=== PATIENT | male | born 1990 | race Caucasian/White ===

== ENCOUNTER 2019-08-15 21:28 | Emergency (ER) | payer OTHER ==
--- NOTE | 2019-08-15 21:41 | ED Physician Documentation ---
History of Present Illness - Stated complaint Stated Complaint: RT UPPER LEG SWELLING/REDNESS - Chief complaint Chief Complaint: Wound - History obtained from History obtained from: Patient (The patient is a 28-year-old male who presents with a chief complaint of pain in his right leg he reports some redness and pain of the right thigh and knee and then also in the right femoral region. He denies any recent trauma or falls he denies any chest pain or shortness of breath he denies any known history of hypercoagulability.Patient denies any back pain or testicular pain or dysuria or flank pain.The patient reports she is otherwise healthy he denies any history of IV drug abuse.) Review of Systems Constitutional: reports: Reviewed and negative Eyes: reports: Reviewed and negative Ears: reports: Reviewed and negative Nose: reports: Reviewed and negative Throat: reports: Reviewed and negative Cardiac: reports: Reviewed and negative Respiratory: reports: Reviewed and negative GI: reports: Reviewed and negative : reports: Reviewed and negative Skin: reports: Reviewed and negative Musculoskeletal: reports: Extremity pain, Extremity swelling Neurologic: reports: Reviewed and negative Psychiatric: reports: Reviewed and negative Endocrine: reports: Reviewed and negative Immunocompromised: reports: Reviewed and negative PD PAST MEDICAL HISTORY - Present Medications Home Medications: Ambulatory Orders Medication Instructions Recorded Confirmed Cephalexin [Keflex] 500 mg PO QID #40 capsule 08/16/19 - Allergies Allergies/Adverse Reactions: Allergies Allergy/AdvReac Type Severity Reaction Status Date / Time No Known Drug Allergies Allergy Verified 08/15/19 21:37 PD ED PE NORMAL - Vitals Vital signs reviewed: Yes - General General: Alert and oriented X 3, No acute distress, Well developed/nourished - HEENT HEENT: Atraumatic, PERRL, EOMI - Neck Neck: Supple, no meningeal sign, No bony TTP, No JVD - Cardiac Cardiac: RRR, Strong equal pulses - Respiratory Respiratory: No respiratory distress, Clear bilaterally - Abdomen Abdomen: Normal bowel sounds, Soft, Non tender, Non distended, No organomegaly - Male Male : Other (testes descended b/l, Circumcised, urethra patent without any blood at the urethral meatus no inguinal hernias appreciated on exam, there is 2 cm tender region in the right femoral region without fluctuance or induration.) - Derm Derm: Warm and dry, Other (There is redness and tenderness over the right distal thigh that continues into the right knee there is no fluctuance or induration, There is also a small amount of redness in the right femoral region.And some mild tenderness and swelling.) - Extremities Extremities: Other (The right lower extremity is similar in diameter compared to the left lower extremity there is erythema in the distal right thigh as well as the distal right popliteal region and the right femoral region with some erythema and tenderness. there is no crepitus on exam. Compartments are soft there is palpable DP and PT pulses are 2+ and symmetric in bilateral lower extremities he has a normal gait.) - Neuro Neuro: Alert and oriented X 3 - Psych Psych: Normal mood, Normal affect Results - Vitals Vitals: Vital Signs - 24 hr 08/15/19 08/15/19 08/15/19 21:34 21:57 23:19 Temperature 36.8 C Heart Rate 92 93 76 Respiratory 17 16 Rate Blood Pressure 136/82 H 149/97 H 115/68 O2 Saturation 97 95 96 08/16/19 01:10 Temperature Heart Rate 76 Respiratory 16 Rate Blood Pressure 116/74 O2 Saturation 97 Oxygen O2 Source Room air - Labs Labs: Laboratory Tests 08/15/19 08/15/19 08/15/19 23:35 23:35 23:35 WBC 9.1 RBC 4.48 L Hgb 14.1 Hct 40.2 L MCV 89.7 MCH 31.5 H MCHC 35.1 RDW 12.4 Plt Count 186 MPV 8.6 Neut # (Auto) 6.2 Lymph # (Auto) 1.7 Beauregard # (Auto) 0.8 Eos # (Auto) 0.3 Baso # (Auto) 0.1 Absolute Nucleated RBC 0.00 Nucleated RBC % 0.0 PT 11.0 INR 1.0 APTT 29.6 Sodium 141 Potassium 3.7 Chloride 105 Carbon Dioxide 22 Anion Gap 14.0 H BUN 12 Creatinine 0.9 Estimated GFR (MDRD) 99 Glucose 111 H Calcium 8.8 PD MEDICAL DECISION MAKING - ED course Complexity details: re-evaluated patient, d/w patient (i had a lengthy discussion with the patient in regards to disposition and treatment, i did offer admission for iv abx, however the patient would like to try outpatient treatment which is a reasonable option given the fact that he has no elevated WBC, Fever or signs of sepsis on exam. he is ambulatory and can tolerate PO abx, we will try a course of outpatient treatment with keflex 500 mg po qid for 10 days, he should return to the emergency department with worsening pain, fever, streaking or any concerns.), other (Patient's exam was concerning for DVT, Doppler ultrasound ordered. also in the ddx would be cellulitis, lymphadenitis, although unlikely also in the ddx would be nec fasc. there are no signs on exam of limb ischemia. I had a lengthy discussion with the patient regarding ) Departure - Departure Disposition: 01 Home, Self Care Clinical Impression: Cellulitis of right leg Condition: Good Instructions: Cellulitis Dc Follow-Up: YOUR,DOCTOR [Other] Prescriptions: Cephalexin [Keflex] 500 mg PO QID #40 capsule Comments: take medication as directed, keep leg elevated and ice several times daily. return to the ed for worsening pain, redness, streaking, fevers or any concerns. Discharge Date/Time: 08/16/19 01:10
[2019-08-15] MEDS ORDERED: HYDROcod/ACETAM 5/325 MG TABLET PO STA (23:22)
--- NOTE | 2019-08-15 23:26 | Ultrasound Report ---
Reason: RLE REDNESS AND SWELLING DVT Procedure Date: 08/15/2019 Accession Number: [id number] / [id number] Procedure: US - Duplex Ext Veins Right CPT Code: Final Report FULL RESULT: EXAM: RIGHT LOWER EXTREMITY VENOUS ULTRASOUND EXAM DATE: 08/15/2019 10:47 PM. CLINICAL HISTORY: RLE REDNESS AND SWELLING DVT. COMPARISON: None. TECHNIQUE: Real-time sonographic vascular imaging was performed by the principal mechanical engineer through the lower extremity utilizing both color-flow and Doppler spectral analysis. Multiple congressional representative static images were saved for review. FINDINGS: Common Femoral Vein (CFV): Normal. CFV-GSV Junction: Normal. Profunda Femoral Vein (PFV): Normal. Femoral Vein (FV) Prox: Normal. Femoral Vein (FV) Mid: Normal. Femoral Vein (FV) Dist: Normal. Popliteal Vein: Normal. Posterior Tibial Veins: Normal. Peroneal Veins: Normal. Other: Lymph node in the groin measuring 2.1 x 1.2 x 2.3 cm. Varicose veins in the medial distal thigh. These appear patent. IMPRESSION: No evidence for deep venous thrombosis. RADIA
[2019-08-15] MEDS ORDERED: cephALEXin 250 MG CAPSULE PO STA (23:34)
[2019-08-15 23:42] LABS: BASOPHILS # (AUTO) 0.1 10^3/uL (0.0-0.1); BASOPHILS % (AUTO) 0.7 %; EOSINOPHILS # (AUTO) 0.3 10^3/uL (0.0-0.7); EOSINOPHILS % (AUTO) 3.5 %; HGB - HEMOGLOBIN 14.1 g/dL (14.0-18.0); LYMPHOCYTES # (AUTO) 1.7 10^3/uL (1.5-3.5); LYMPHOCYTES % (AUTO) 18.9 %; MEAN CORPUSCULAR HEMOGLOBIN 31.5 pg (27.0-31.0); MEAN CORPUSCULAR HGB CONC 35.1 g/dL (32.0-36.0); MEAN CORPUSCULAR VOLUME 89.7 fL (80.0-94.0); MEAN PLATELET VOLUME 8.6 fL (7.4-11.4); MONOCYTES # (AUTO) 0.8 10^3/uL (0.0-1.0); MONOCYTES % (AUTO) 8.8 %; NEUTROPHILS # (AUTO) 6.2 10^3/uL (1.5-6.6); NEUTROPHILS % (AUTO) 67.9 %; PLT - PLATELET COUNT 186 10^3/uL (130-450); RED BLOOD COUNT 4.48 10^6/uL (4.70-6.10); RED CELL DISTRIBUTION WIDTH 12.4 % (12.0-15.0); WHITE BLOOD COUNT 9.1 x10^3/uL (4.8-10.8)
[2019-08-15 23:50] LABS: CALCIUM 8.8 mg/dL (8.5-10.3); CREATININE 0.9 mg/dL (0.6-1.2)
[2019-08-15 23:55] LABS: PARTIAL THROMBOPLASTIN TIME 29.6 secs (24.9-33.3)
--- NOTE | 2019-08-16 00:39 | XRAY Report ---
Reason: pain and swelling Procedure Date: 08/16/2019 Accession Number: [id number] / [id number] Procedure: XR - Femur 2V RT CPT Code: Final Report FULL RESULT: EXAM: RIGHT FEMUR RADIOGRAPHY EXAM DATE: 08/16/2019 12:04 AM. CLINICAL HISTORY: Pain and swelling. COMPARISON: KNEE 4 VIEW RT 08/16/2019 12:04 AM. TECHNIQUE: 2 views. FINDINGS: Bones: No fracture seen. Joints: No dislocation seen. Joints appear intact as imaged. Soft Tissues: Grossly unremarkable. IMPRESSION: 1. No acute osseous abnormality seen. RADIA
--- NOTE | 2019-08-16 00:42 | XRAY Report ---
Reason: pain and swelling Procedure Date: 08/16/2019 Accession Number: [id number] / [id number] Procedure: XR - Knee 4 View RT CPT Code: Final Report FULL RESULT: EXAM: RIGHT KNEE RADIOGRAPHY EXAM DATE: 08/16/2019 12:04 AM. CLINICAL HISTORY: Pain and swelling. COMPARISON: None. TECHNIQUE: 4 views. FINDINGS: Bones: No acute fracture seen. Joints: No dislocation seen. Joint spaces appear preserved. No joint effusion identified. Soft Tissues: Grossly unremarkable. IMPRESSION: 1. No acute fracture or dislocation seen. RADIA
[2019-08-16] MEDS ORDERED: CEPHALEXIN 250 MG Prepack 8 CAP BOTTLE PO STA (00:49)
[2019-08-16] MEDS ORDERED: HYDROcod/ACET 5/325 Prepack 4 PO STA (00:49)
[2019-08-16] MEDS ORDERED: HYDROcod/ACETAM 5/325 MG TABLET PO STA (01:03)
[2019-08-16 01:11] VITALS: BP 116/74
== END 2019-08-16 01:10 | disposition home or self-care (01) ==
LOC: ED 21:28
DX: L03.115 Cellulitis of right lower limb (principal)
CPT/HCPCS: 36415; 73552; 73564; 80048; 85025; 85610; 85730; 93971; 99283; 99284; A9270

== ENCOUNTER 2021-08-09 09:01 | Emergency (ER) | payer OTHER, BC ==
[2021-08-09 09:14] VITALS: BP 116/74
[2021-08-09] MEDS ORDERED: TETANUS/DIPHTHERIA/PERTUSSIS 0.5 ML SYRINGE IM ONE (09:19)
--- NOTE | 2021-08-09 09:30 | ED Physician Documentation ---
PD HPI LOWER EXT INJURY - Stated complaint Stated Complaint: RT FT INJRY - Chief complaint Chief Complaint: General - History obtained from History obtained from: Patient - History of Present Illness PD HPI LOW EXT INJURY LOCATION: Right, Toe (great toe) Type of injury: Puncture wound Where injury occurred: Work Timing - onset: Enter time (1700), Yesterday Timing - duration: Days (1) Timing - details: Abrupt onset, Still present Improved by: Rest Worsened by: Moving Associated symptoms: No: Weakness, Numbness, Tingling, Swelling, Discolored Contributing factors: No: Anticoagulated Similar symptoms before: Has not had sx before Recently seen: Not recently seen - Additional information Additional information: 30-year-old male was at work yesterday when he stepped on a nail into his right great toe. He is able to control bleeding and he went to go get a tetanus booster today at the walk-in clinic and was told they do not do that there. He has come here now for a tetanus booster. Review of Systems Constitutional: denies: Fever Respiratory: denies: Cough GI: denies: Vomiting PD PAST MEDICAL HISTORY - Past Surgical History Past Surgical History: No - Present Medications Home Medications: Ambulatory Orders Medication Instructions Recorded Confirmed cephALEXin [Keflex] 500 mg PO QID #40 capsule 08/16/19 - Allergies Allergies/Adverse Reactions: Allergies Allergy/AdvReac Type Severity Reaction Status Date / Time No Known Drug Allergies Allergy Verified 08/09/21 09:15 - Social History Does the pt smoke?: No Smoking Status: Never smoker Does the pt drink ETOH?: Yes Does the pt have substance abuse?: Yes - Immunizations Immunizations are current?: Yes - POLST Patient has POLST: No PD ED PE NORMAL - Vitals Vital signs reviewed: Yes (Normal) - General General: No acute distress, Well developed/nourished - HEENT HEENT: Atraumatic, PERRL, EOMI - Respiratory Respiratory: No respiratory distress - Extremities Extremities: No deformity, No edema, Other (Puncture wound to the right great toe on the plantar surface without involvement of deeper structures) - Neuro Neuro: Alert and oriented X 3, wide area network engineer 2-12 intact, No motor deficit, No sensory deficit, Normal speech Eye Opening: Spontaneous Motor: Obeys Commands Verbal: Oriented GCS Score: 15 - Psych Psych: Normal mood, Normal affect Results - Vitals Vitals: Vital Signs - 24 hr 08/09/21 09:11 Temperature 36.8 C Heart Rate 88 Respiratory 15 Rate Blood Pressure 116/74 O2 Saturation 98 Oxygen O2 Source Room air PD MEDICAL DECISION MAKING - ED course Complexity details: considered differential, d/w patient ED course: 30-year-old male with a puncture wound to the right great toe is given a tetanus booster. Departure - Departure Disposition: 01 Home, Self Care Clinical Impression: Puncture wound of great toe of right foot Qualifiers: Encounter type: initial encounter Qualified Code(s): S91.131A - Puncture wound without foreign body of right great toe without damage to nail, initial encounter Condition: Stable Instructions: ED Wound Puncture Foot Follow-Up: Cali Paniagua MD [Provider Admit Priv/Credential] -
== END 2021-08-09 10:04 | disposition home or self-care (01) ==
LOC: ED 09:01
DX: S91.131A Puncture wound without foreign body of right great toe without damage to nail, initial encounter (principal); W45.0XXA Nail entering through skin, initial encounter; W22.09XA Striking against other stationary object, initial encounter; Y93.89 Activity, other specified; Y99.0 Civilian activity done for income or pay
CPT/HCPCS: 1040M; 90715; 90471; 99282; 99283